=== PATIENT | male | born 1980 | race Caucasian/White ===

== ENCOUNTER 2019-01-27 13:17 | Emergency (ER) | payer MEDICAID ==
[~2019-01-27] VITALS: Ht 185.4 cm; Wt 93.6 kg
[2019-01-27 14:11] LABS: BASOPHILS % (AUTO) 0.5 % (0-1); EOSINOPHILS # (AUTO) 0.1 X10'3 (0-0.9); EOSINOPHILS % (AUTO) 1.6 % (0-6); HEMATOCRIT 48.1 % (42.0-52.0); HEMOGLOBIN 16.5 g/dl (14.0-17.9); LYMPHOCYTES # (AUTO) 0.9 X10'3 (1.1-4.8); MEAN CORPUSCULAR HEMOGLOBIN 29.4 PG (27.0-31.0); MEAN CORPUSCULAR HGB CONC 34.3 g/dL (33.0-36.5); MEAN CORPUSCULAR VOLUME 85.8 FL (78-98); MEAN PLATELET VOLUME 8.9 FL (7.4-10.4); MONOCYTES # (AUTO) 0.6 X10'3 (0-0.9); MONOCYTES % (AUTO) 11.5 % (2-12); NEUTROPHILS # (AUTO) 3.7 X10'3 (1.8-7.7); NEUTROPHILS % (AUTO) 70.4 % (42-75); PLATELET COUNT 217 X10'3 (140-440); RED CELL DISTRIBUTION WIDTH 13.7 % (11.5-14.5); WHITE BLOOD COUNT 5.3 X10'3 (4.5-11.0)
[2019-01-27 14:20] LABS: PARTIAL THROMBOPLASTIN TIME 28 SECONDS (22-32); PROTHROMBIN TIME 10.6 SECONDS (9.0-12.0)
[2019-01-27 15:33] LABS: ALANINE AMINOTRANSFERASE 58 U/L (12-78); ALBUMIN 4.4 G/DL (3.4-5.0); ALBUMIN/GLOBULIN RATIO 1.5 (1.1-1.5); ALKALINE PHOSPHATASE 92 IU/L (46-116); ANION GAP 15 (8-16); ASPARTATE AMINO TRANSFERASE 28 U/L (10-37); BILIRUBIN,TOTAL 0.5 MG/DL (0.1-1.0); BLOOD UREA NITROGEN 19 MG/DL (7-18); BUN/CREATININE RATIO 19.8 (5.4-32.0); CALCIUM 9.7 MG/DL (8.5-10.1); CHLORIDE 102 MMOL/L (99-107); CREATININE 0.96 MG/DL (0.60-1.10); GLUCOSE 94 MG/DL (70-104); SODIUM 137 MMOL/L (135-145); TOTAL CARBON DIOXIDE 20.2 MMOL/L (24-32); TOTAL PROTEIN 7.4 G/DL (6.4-8.2); eGFR 88 ML/MIN
[2019-01-27] MEDS ORDERED: methylPREDNISolone sod succ/PF 40mg inj. IM SCH (16:00)
[2019-01-27] MEDS ORDERED: ipratropium/albuterol 3ml nebule NEB PRN (16:00)
[2019-01-27] MEDS ORDERED: albuterol 2.5 MG/3 ML nebule NEB ONE (16:00)
--- NOTE | 2019-01-27 16:06 | NUR ---
rt paged,breathing tx order.
[2019-01-27 16:10] VITALS: BP 116/72
[2019-01-27] MEDS ORDERED: PRED20TA PO (16:57)
[2019-01-27] MEDS ORDERED: ALBU18HF2 INH (16:57)
[2019-01-27] MEDS ORDERED: prednison (16:57)
== END 2019-01-27 17:13 | disposition home or self-care (01) ==
LOC: ER 14:04
DX: J20.9 Acute bronchitis, unspecified (principal); F17.200 Nicotine dependence, unspecified, uncomplicated; Z56.0 Unemployment, unspecified; Z79.899 Other long term (current) drug therapy
CPT/HCPCS: 36415; 71045; 80053; 84484; 85025; 85610; 85730; 93005; 94640; 94760; 96372; 99284; J2920

== ENCOUNTER 2020-04-02 17:28 | Emergency (ER) | payer MEDICAID, OTHER ==
[~2020-04-02] VITALS: Ht 185.4 cm; Wt 89.0 kg
[~2020-04-02 17:28] MED LIST: ALBU18HF2 INH; prednison
[2020-04-02 17:37] VITALS: BP 109/72
[2020-04-02] MEDS ORDERED: LIDOcaine 5% patch TP SCH (18:15)
[2020-04-02] MEDS ORDERED: LIDOcaine 5% patch TP ONE (18:15)
[2020-04-02] MEDS ORDERED: NAPR-56 PO (18:18)
== END 2020-04-02 18:44 | disposition home or self-care (01) ==
LOC: ER 17:29
DX: Z56.0 Unemployment, unspecified (principal); Z79.899 Other long term (current) drug therapy; T22.111A Burn of first degree of right forearm, initial encounter; X16.XXXA Contact with hot heating appliances, radiators and pipes, initial encounter; Y93.89 Activity, other specified; Y92.89 Other specified places as the place of occurrence of the external cause; Y99.8 Other external cause status
CPT/HCPCS: 99282